=== PATIENT | male | born 1950 | race Caucasian/White ===

== ENCOUNTER 2021-10-27 16:46 | Emergency (ER) | payer OTHER, MEDICAID, SELFPAY ==
[~2021-10-27] VITALS: Ht 177.8 cm; Wt 90.7 kg
[2021-10-27 16:46] VITALS: BP_SYST 134
--- NOTE | 2021-10-27 16:46 | NUR ---
BROUGHT IN BY [facility], PLACED IN HALLWAY AND TRIAGED. PT NOT COOPERATIVE WITH ANSWERING QUESTIONS. AWAITING ER BED AVAILABILITY
[2021-10-27] MEDS ORDERED: HALOPERIDOL LACTATE 5 MG/ML VIAL IM ONE (18:15)
[2021-10-27 18:40] LABS: BASOPHILS % (AUTO) 0.5 % (0.0-2.0); EOSINOPHILS # (AUTO) 0.1 K/uL (0.0-0.4); EOSINOPHILS % (AUTO) 2.1 % (0.0-4.0); HEMATOCRIT 35.4 % (36-54); HEMOGLOBIN 12.4 g/dL (14.0-18.0); LYMPHOCYTES # (AUTO) 0.9 K/uL (1.0-5.5); LYMPHOCYTES % (AUTO) 30.2 % (20.5-51.5); MEAN CORPUSCULAR HEMOGLOBIN 38 pg (27-31); MEAN CORPUSCULAR HGB CONC 35 % (32-36); MEAN CORPUSCULAR VOLUME 107 fL (79.0-98.0); MONOCYTES # (AUTO) 0.3 K/uL (0.0-1.0); MONOCYTES % (AUTO) 10.6 % (1.7-9.3); NEUTROPHILS # (AUTO) 1.8 K/uL (1.8-7.7); NEUTROPHILS % (AUTO) 56.6 % (40.0-70.0); RED CELL DISTRIBUTION WIDTH 16.4 % (9.0-15.0)
[2021-10-27 19:10] LABS: ANION GAP 8 (5-15); CALCIUM 9.5 mg/dL (8.4-11.0); CHLORIDE 108 mmol/L (98-107); CREATININE 0.88 mg/dL (0.55-1.30); GLUCOSE 106 mg/dL (70-99); POTASSIUM 4.4 mmol/L (3.5-5.1); SODIUM SERUM 139 mmol/L (136-145); UREA NITROGEN, BLOOD 21 mg/dL (8-21)
[2021-10-27 19:15] LABS: PLATELET COUNT (AUTO) 38 K/uL (130-430)
[2021-10-27 19:16] LABS: WHITE BLOOD COUNT (AUTO) 3.1 K/uL (4.8-10.8)
[2021-10-27 19:17] LABS: ALANINE AMINOTRANSFERASE 42 U/L (12-78); ALBUMIN 3.2 g/dL (3.4-4.8); ASPARTATE AMINOTRANSFERASE 33 U/L (10-37); TOTAL BILIRUBIN 3.8 mg/dL (0.0-1.0)
[2021-10-27 19:31] LABS: ALCOHOL, BLOOD < 3 mg/dL (<10); GFR AFRICAN AMERICAN 110 mL/min (>90)
[2021-10-27 19:32] LABS: ACETAMINOPHEN < 1 ug/mL (1-30)
--- NOTE | 2021-10-27 19:51 | NUR ---
Placed in room 08 . Placed on nuclear monitoring technician, blood pressure machine and pulse oximeter. To gown for exam. Side rails up. Report given to KALANI Moreno
--- NOTE | 2021-10-27 19:55 | NUR ---
Dr. Flaherty bedside for pt eval
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
--- NOTE | 2021-10-27 20:20 | NUR ---
Pt went to and from Radiology, well tolerated
--- NOTE | 2021-10-27 21:33 | NUR ---
VSS no s/s of acute distress Resting on gurney rails up
--- NOTE | 2021-10-27 22:12 | NUR ---
Dr. Flaherty bedside for pt update
--- NOTE | 2021-10-27 23:05 | NUR ---
Spoke with Arnoldo from [facility], report was given and Virgie aware pt will arrive after 0030
--- NOTE | 2021-10-28 | NUR ---
Pt resting in comfort with VSS, ETA for transport to [place] in 30 min
[2021-10-28 01:00] VITALS: BP_SYST 134
--- NOTE | 2021-10-28 01:00 | NUR ---
Patient given written and verbal discharge instructions and verbalizes understanding. ER MD discussed with patient the results and treatment provided. Patient in stable condition. ID arm band removed. Patient educated on pain management and to follow up with PMD. Pain Scale 0/10 Opportunity for questions provided and answered.
== END 2021-10-28 01:00 | disposition home or self-care (01) ==
LOC: SED 16:46
DX: R45.6 Violent behavior (principal); Z79.899 Other long term (current) drug therapy; Z20.822 Contact with and (suspected) exposure to COVID-19
CPT/HCPCS: 36415; 71045; 71250; 76376; 80053; 83036; 85025; 87081; 87426; 93005; 96372; 99285; G0480; J1630; G0481; G0482

== ENCOUNTER 2021-11-28 16:23 | Emergency (ER) | payer OTHER, MEDICAID ==
[2021-11-28 16:48] VITALS: BP_SYST 126
[2021-11-28 18:19] LABS: HEMATOCRIT 34.4 % (36-54); HEMOGLOBIN 11.5 g/dL (14.0-18.0); MEAN CORPUSCULAR HEMOGLOBIN 38 pg (27-31); MEAN CORPUSCULAR HGB CONC 34 % (32-36); MEAN CORPUSCULAR VOLUME 113 fL (79.0-98.0); RED BLOOD CELL COUNT(AUTO) 3.04 MIL/uL (4.2-6.2); WHITE BLOOD COUNT (AUTO) 2.6 K/uL (4.8-10.8)
[2021-11-28 18:34] LABS: PLATELET COUNT (AUTO) 35 K/uL (130-430)
--- NOTE | 2021-11-28 18:34 | NUR ---
platelets [address] valentine aware
[2021-11-28 18:37] LABS: CALCIUM 7.8 mg/dL (8.4-11.0); CREATININE 0.58 mg/dL (0.55-1.30)
[2021-11-28 18:43] LABS: INR 1.5 (0.80-1.20); PROTHROMBIN TIME 15.4 SECS (9.5-12.5); TOTAL BILIRUBIN 2.2 mg/dL (0.0-1.0)
[2021-11-28 19:14] LABS: C-REACTIVE PROTEIN QUANT 0.3 mg/dL (0-0.5)
--- NOTE | 2021-11-28 19:18 | NUR ---
assumed care of pt from chema dawn
--- NOTE | 2021-11-28 19:18 | NUR ---
# 20 gauge angiocath placed to RAC. Use of asceptic technique. Opsite placed over site. Blood return noted. Flushed with 10 cc of normal saline. No evidence of infiltration noted. Patient tolerated well.
[2021-11-28 19:28] LABS: BAND % (MANUAL) 13 % (0-6); BASOPHILS % (MANUAL) 0 % (0-2); EOSINOPHILS % (MANUAL) 2 % (0-7); LYMPHOCYTES % (MANUAL) 20 % (20-46); MONOCYTES % (MANUAL) 13 % (0-11)
--- NOTE | 2021-11-28 21:04 | NUR ---
REPORT CALLED FOR PT AT [facility]
--- NOTE | 2021-11-28 21:04 | NUR ---
Jesenia camacho in ED - 11/28/21 at 2104 by JONATHANGS REPORT CALLED FOR PT AT [place].
[2021-11-28 23:55] VITALS: BP_SYST 132
== END 2021-11-28 23:55 ==
LOC: SED 16:23
DX: R18.8 Other ascites (principal); I10 Essential (primary) hypertension
CPT/HCPCS: 36415; 76376; 80053; 82150; 83605; 83615; 83690; 84484; 85007; 85027; 85610-TC; 85730-TC; 86140; 99284

== ENCOUNTER 2022-02-18 11:26 | Inpatient (IN) | payer OTHER, MEDICAID ==
[~2022-02-18] VITALS: Ht 175.3 cm; Wt 118.4 kg
[2022-02-18 11:28] VITALS: BP_SYST 122
[2022-02-18 14:07] LABS: CALCIUM 8.1 mg/dL (8.4-11.0); CREATININE 0.83 mg/dL (0.55-1.30); POTASSIUM 3.2 mmol/L (3.5-5.1)
[2022-02-18 14:09] LABS: BASOPHILS % (AUTO) 0.8 % (0.0-2.0); EOSINOPHILS # (AUTO) 0.2 K/uL (0.0-0.4); EOSINOPHILS % (AUTO) 4.9 % (0.0-4.0); HEMATOCRIT 25.2 % (36-54); HEMOGLOBIN 8.5 g/dL (14.0-18.0); LYMPHOCYTES # (AUTO) 0.8 K/uL (1.0-5.5); LYMPHOCYTES % (AUTO) 23.2 % (20.5-51.5); MEAN CORPUSCULAR HEMOGLOBIN 36 pg (27-31); MEAN CORPUSCULAR HGB CONC 34 % (32-36); MEAN CORPUSCULAR VOLUME 107 fL (79.0-98.0); MONOCYTES # (AUTO) 0.4 K/uL (0.0-1.0); NEUTROPHILS % (AUTO) 59.1 % (40.0-70.0); RED BLOOD CELL COUNT(AUTO) 2.36 MIL/uL (4.2-6.2); RED CELL DISTRIBUTION WIDTH 16.7 % (9.0-15.0); WHITE BLOOD COUNT (AUTO) 3.4 K/uL (4.8-10.8)
[2022-02-18 14:30] LABS: ALBUMIN 1.8 g/dL (3.4-4.8); TOTAL BILIRUBIN 4.1 mg/dL (0.0-1.0)
[2022-02-18 14:32] LABS: C-REACTIVE PROTEIN QUANT 0.2 mg/dL (0-0.5)
[2022-02-18 15:06] LABS: PLATELET COUNT (AUTO) 36 K/uL (130-430)
[2022-02-18] MEDS ORDERED: FOLI-43 PO (15:38)
[2022-02-18] MEDS ORDERED: FAMO20TA8 PO (15:38)
[2022-02-18] MEDS ORDERED: RIFA550T5 PO (15:38)
[2022-02-18] MEDS ORDERED: FURO-150 PO (15:38)
[2022-02-18] MEDS ORDERED: LOSA25TA18 PO (15:38)
[2022-02-18] MEDS ORDERED: CYAN100082 PO (15:38)
[2022-02-18 20:25] VITALS: BP_SYST 142
[2022-02-18] MEDS ORDERED: POTASSIUM CHLORIDE 20 MEQ/PKT PACKET PO ONE (21:30)
[2022-02-19 05:29] VITALS: BP_SYST 97
[2022-02-19 08:00] VITALS: BP_SYST 121
[2022-02-19] MEDS ORDERED: FUROSEMIDE 20 MG TABLET PO SCH (09:00)
[2022-02-19] MEDS: FOLIC ACID 1 MG TABLET PO SCH (09:39)
[2022-02-19] MEDS: RIFAXIMIN 550 MG TABLET PO SCH ×2 (09:39→21:57)
[2022-02-19] MEDS: CYANOCOBALAMIN 1000 mCg TABLET PO SCH (09:40)
[2022-02-19] MEDS: LOSARTAN POTASSIUM 25 MG TABLET PO SCH (09:40)
[2022-02-19] MEDS: FAMOTIDINE 20 MG TABLET PO SCH (09:41)
[2022-02-19 09:47] LABS: BASOPHILS % (AUTO) 0.6 % (0.0-2.0); EOSINOPHILS # (AUTO) 0.2 K/uL (0.0-0.4); EOSINOPHILS % (AUTO) 6.7 % (0.0-4.0); HEMATOCRIT 25.9 % (36-54); HEMOGLOBIN 8.6 g/dL (14.0-18.0); LYMPHOCYTES # (AUTO) 0.7 K/uL (1.0-5.5); LYMPHOCYTES % (AUTO) 28.6 % (20.5-51.5); MEAN CORPUSCULAR HEMOGLOBIN 36 pg (27-31); MEAN CORPUSCULAR HGB CONC 33 % (32-36); MEAN CORPUSCULAR VOLUME 108 fL (79.0-98.0); MONOCYTES # (AUTO) 0.3 K/uL (0.0-1.0); MONOCYTES % (AUTO) 11.4 % (1.7-9.3); NEUTROPHILS # (AUTO) 1.3 K/uL (1.8-7.7); NEUTROPHILS % (AUTO) 52.7 % (40.0-70.0); RED CELL DISTRIBUTION WIDTH 17.2 % (9.0-15.0); WHITE BLOOD COUNT (AUTO) 2.5 K/uL (4.8-10.8)
[2022-02-19 10:01] LABS: CALCIUM 8.1 mg/dL (8.4-11.0); CREATININE 0.62 mg/dL (0.55-1.30)
[2022-02-19 10:17] LABS: PLATELET COUNT (AUTO) 33 K/uL (130-430)
[2022-02-19 10:37] LABS: INR 2.3 (0.80-1.20); PROTHROMBIN TIME 22.2 SECS (9.5-12.5)
[2022-02-19 11:09] LABS: POTASSIUM 3.9 mmol/L (3.5-5.1)
[2022-02-19 12:00] VITALS: BP_SYST 123
[2022-02-19 16:00] VITALS: BP_SYST 107
[2022-02-19] MEDS ORDERED: SPIRONOLACTONE 50 MG TABLET (ALDACTONE) PO ONE (16:15)
[2022-02-19] MEDS: FUROSEMIDE 40 MG/4 ML VIAL IVP SCH (21:57)
[2022-02-20 06:04] VITALS: BP_SYST 107
[2022-02-20 08:00] VITALS: BP_SYST 136
[2022-02-20] MEDS: FAMOTIDINE 20 MG TABLET PO SCH ×2 (08:24→09:00)
[2022-02-20] MEDS: RIFAXIMIN 550 MG TABLET PO SCH ×3 (08:24→22:26)
[2022-02-20] MEDS: CYANOCOBALAMIN 1000 mCg TABLET PO SCH ×2 (08:24→09:00)
[2022-02-20] MEDS: FUROSEMIDE 40 MG/4 ML VIAL IVP SCH ×3 (08:25→21:00)
[2022-02-20] MEDS: SPIRONOLACTONE 50 MG TABLET (ALDACTONE) PO SCH ×2 (08:25→09:00)
[2022-02-20] MEDS: FOLIC ACID 1 MG TABLET PO SCH ×2 (08:25→09:00)
[2022-02-20] MEDS: LOSARTAN POTASSIUM 25 MG TABLET PO SCH ×2 (08:25→09:00)
[2022-02-20] MEDS ORDERED: MEGESTROL ACETATE 400 MG/10 ML UDC PO ONE (19:00)
[2022-02-20] MEDS ORDERED: LACTULOSE 20 GM/30 ML UDC PO ONE (19:00)
[2022-02-20] MEDS: MEGESTROL ACETATE 400 MG/10 ML UDC PO SCH ×2 (19:22→22:26)
[2022-02-20] MEDS: LACTULOSE 20 GM/30 ML UDC PO SCH (22:27)
[2022-02-21 00:02] VITALS: BP_SYST 99
[2022-02-21 06:18] LABS: CALCIUM 7.9 mg/dL (8.4-11.0); CREATININE 0.82 mg/dL (0.55-1.30); POTASSIUM 3.4 mmol/L (3.5-5.1)
[2022-02-21 07:23] LABS: BASOPHILS % (AUTO) 0.5 % (0.0-2.0); EOSINOPHILS # (AUTO) 0.2 K/uL (0.0-0.4); EOSINOPHILS % (AUTO) 4.6 % (0.0-4.0); HEMATOCRIT 24.9 % (36-54); HEMOGLOBIN 8.5 g/dL (14.0-18.0); LYMPHOCYTES # (AUTO) 0.6 K/uL (1.0-5.5); LYMPHOCYTES % (AUTO) 18.2 % (20.5-51.5); MEAN CORPUSCULAR HEMOGLOBIN 37 pg (27-31); MEAN CORPUSCULAR HGB CONC 34 % (32-36); MEAN CORPUSCULAR VOLUME 107 fL (79.0-98.0); MONOCYTES # (AUTO) 0.4 K/uL (0.0-1.0); MONOCYTES % (AUTO) 10.9 % (1.7-9.3); NEUTROPHILS # (AUTO) 2.1 K/uL (1.8-7.7); NEUTROPHILS % (AUTO) 65.8 % (40.0-70.0); RED BLOOD CELL COUNT(AUTO) 2.32 MIL/uL (4.2-6.2); WHITE BLOOD COUNT (AUTO) 3.3 K/uL (4.8-10.8)
[2022-02-21 07:40] LABS: PLATELET COUNT (AUTO) 33 K/uL (130-430)
[2022-02-21 08:00] VITALS: BP_SYST 131
[2022-02-21] MEDS: LACTULOSE 20 GM/30 ML UDC PO SCH ×3 (09:16→21:34)
[2022-02-21] MEDS: MEGESTROL ACETATE 400 MG/10 ML UDC PO SCH ×2 (09:16→21:33)
[2022-02-21] MEDS: RIFAXIMIN 550 MG TABLET PO SCH ×2 (09:17→21:34)
[2022-02-21] MEDS: SPIRONOLACTONE 50 MG TABLET (ALDACTONE) PO SCH (09:17)
[2022-02-21] MEDS: FOLIC ACID 1 MG TABLET PO SCH (09:17)
[2022-02-21] MEDS: LOSARTAN POTASSIUM 25 MG TABLET PO SCH (09:17)
[2022-02-21] MEDS: CYANOCOBALAMIN 1000 mCg TABLET PO SCH (09:17)
[2022-02-21] MEDS: FUROSEMIDE 40 MG/4 ML VIAL IVP SCH ×2 (09:18→21:37)
[2022-02-21 12:00] VITALS: BP_SYST 120
[2022-02-21 17:02] VITALS: BP_SYST 100
[2022-02-21] MEDS ORDERED: POTASSIUM CHLORIDE 20 MEQ/PKT PACKET PO ONE (19:15)
[2022-02-21 20:44] VITALS: BP_SYST 114
[2022-02-21 23:22] VITALS: BP_SYST 119
[2022-02-22 06:21] LABS: BASOPHILS % (AUTO) 0.6 % (0.0-2.0); EOSINOPHILS # (AUTO) 0.1 K/uL (0.0-0.4); EOSINOPHILS % (AUTO) 3.6 % (0.0-4.0); HEMATOCRIT 25.1 % (36-54); HEMOGLOBIN 8.5 g/dL (14.0-18.0); LYMPHOCYTES # (AUTO) 0.8 K/uL (1.0-5.5); MEAN CORPUSCULAR HEMOGLOBIN 37 pg (27-31); MEAN CORPUSCULAR HGB CONC 34 % (32-36); MEAN CORPUSCULAR VOLUME 108 fL (79.0-98.0); MONOCYTES # (AUTO) 0.4 K/uL (0.0-1.0); MONOCYTES % (AUTO) 12.7 % (1.7-9.3); NEUTROPHILS # (AUTO) 2.2 K/uL (1.8-7.7); NEUTROPHILS % (AUTO) 61.1 % (40.0-70.0); RED BLOOD CELL COUNT(AUTO) 2.33 MIL/uL (4.2-6.2); RED CELL DISTRIBUTION WIDTH 17.1 % (9.0-15.0); WHITE BLOOD COUNT (AUTO) 3.5 K/uL (4.8-10.8)
[2022-02-22 07:36] LABS: CALCIUM 8.3 mg/dL (8.4-11.0); CREATININE 0.94 mg/dL (0.55-1.30); POTASSIUM 3.7 mmol/L (3.5-5.1)
[2022-02-22 08:00] VITALS: BP_SYST 111
[2022-02-22] MEDS: FOLIC ACID 1 MG TABLET PO SCH (08:55)
[2022-02-22] MEDS: RIFAXIMIN 550 MG TABLET PO SCH (08:55)
[2022-02-22] MEDS: LACTULOSE 20 GM/30 ML UDC PO SCH ×2 (08:55→14:49)
[2022-02-22] MEDS: SPIRONOLACTONE 50 MG TABLET (ALDACTONE) PO SCH (08:55)
[2022-02-22] MEDS: MEGESTROL ACETATE 400 MG/10 ML UDC PO SCH (08:55)
[2022-02-22] MEDS: CYANOCOBALAMIN 1000 mCg TABLET PO SCH (08:56)
[2022-02-22] MEDS: LOSARTAN POTASSIUM 25 MG TABLET PO SCH (08:56)
[2022-02-22] MEDS: FUROSEMIDE 40 MG/4 ML VIAL IVP SCH (09:41)
[2022-02-22 12:19] VITALS: BP_SYST 115
[2022-02-22 14:59] LABS: PLATELET COUNT (AUTO) 39 K/uL (130-430)
[2022-02-22 16:42] VITALS: BP_SYST 112
[2022-02-22 16:48] VITALS: BP_SYST 112
== END 2022-02-22 18:42 | DRG 432 ==
LOC: SED 11:26 → SMU 17:51
PROVIDERS: ADMIT Family Medicine; ATTEND Family Medicine
DX: K70.31 Alcoholic cirrhosis of liver with ascites (principal); K72.00 Acute and subacute hepatic failure without coma; E43 Unspecified severe protein-calorie malnutrition; I50.9 Heart failure, unspecified; D69.6 Thrombocytopenia, unspecified; K21.9 Gastro-esophageal reflux disease without esophagitis; Z20.822 Contact with and (suspected) exposure to COVID-19; D64.9 Anemia, unspecified; K72.10 Chronic hepatic failure without coma; I11.0 Hypertensive heart disease with heart failure; Z66 Do not resuscitate; Z79.899 Other long term (current) drug therapy
CPT/HCPCS: 36415; 71045; 76376; 76705; 80048; 80053; 82140; 82550; 83605; 83690; 83735; 83880; 84100; 84484; 85025; 85610-TC; 85730-TC; 86140; 87040; 87081; 93005; 97163-GP; 99285; J1940